=== PATIENT | female | born 2000 | race Caucasian/White ===

== ENCOUNTER → 2022-07-03 | Outpatient (CLI) | payer SELFPAY ==
[2022-07-06 21:07] LABS: Chlamydia By Nucleic Acid AMP Negative (Negative); Gonococcus By Nucleic Acid AMP Negative (Negative)
== END | disposition home or self-care (01) ==
LOC: LABSPEC 16:47
PROVIDERS: Referring Provider Obstetrics & Gynecology; Visit Provider Obstetrics & Gynecology
DX: Z20.2 Contact with and (suspected) exposure to infections with a predominantly sexual mode of transmission (principal)
CPT/HCPCS: 87491; 87591

== ENCOUNTER → 2022-12-29 | Outpatient (CLI) | payer SELFPAY | END | disposition home or self-care (01) | LOC: LABSPEC 11:40 | PROVIDERS: Referring Provider Nurse Practitioner Women's Health; Visit Provider Nurse Practitioner Women's Health | DX: N89.8 Other specified noninflammatory disorders of vagina (principal) | CPT/HCPCS: 87070; 87077; 87186; 87205 ==

== ENCOUNTER → 2023-07-06 | Outpatient (CLI) | payer OTHER, SELFPAY ==
[2023-07-12 16:06] LABS: HPV Reflexed? NOT INDICATED
== END | disposition home or self-care (01) ==
LOC: LABSPEC 12:28
PROVIDERS: Referring Provider Nurse Practitioner Women's Health; Visit Provider Nurse Practitioner Women's Health
DX: Z12.4 Encounter for screening for malignant neoplasm of cervix (principal)
CPT/HCPCS: 88175; G0145

== ENCOUNTER → 2024-11-06 | Outpatient (CLI) | payer OTHER, SELFPAY ==
--- OUTSIDE RECORDS SUMMARY | 2024-11-06 21:47 | XMS RPT_ITS | CCD ---
Author Organization [facility] Care Team Providers Care Truck Dispatcher Name Role Phone Dr. Sigrid Castillo Attending Provider [place] PROGRAM DIRECTOR/AIR PERSONALITY, PROGRAM DIRECTOR/AIR PERSONALITY-C Rhoda Attending Provider [place] PROGRAM DIRECTOR/AIR PERSONALITY, PROGRAM DIRECTOR/AIR PERSONALITY-C Rhoda Attending Provider [place] PROGRAM DIRECTOR/AIR PERSONALITY, Rhoda Attending Unavailable [place] PROGRAM DIRECTOR/AIR PERSONALITY, Rhoda Attending Unavailable [place] PROGRAM DIRECTOR/AIR PERSONALITY, Rhoda Referring Unavailable [place] PROGRAM DIRECTOR/AIR PERSONALITY, Rhoda Attending Unavailable [place] PROGRAM DIRECTOR/AIR PERSONALITY, Rhoda Referring Unavailable Sigrid Castillo Attending Unavailable [place] PROGRAM DIRECTOR/AIR PERSONALITY, Rhoda Attending Unavailable Unavailable Primary Care Provider Unavailnitin Rendon MD, [facility] Primary Care Provider CHRISTINA RENDON Attending Unavailable JUSTICE, CHRISTINA Primary Care Unavailable JUSTICE, CHRISTINA Attending Unavailable JUSTICE, BANNER Primary Care Unavailable LATOYA CACERES Attending Unavailable LATOYA CACERES Referring Unavailable JUSTICE, CHRISTINA Primary Care Unavailable [place] PROGRAM DIRECTOR/AIR PERSONALITY-C, Rhoda Attending Provider Medications Current Medications Medication Drug Class(es) Dates Sig (Normalized) Sig (Original) [id number] 200 actuat albuterol 0.09 mg/actuat metered dose inhaler (13 sources) beta2-Adrenergic Agonist Start: 08-04-2023 End: 08-04-2023 take 2 puff(s) by inhalation every four hours as needed for wheezing albuterol HFA (PROVENTIL HFA, VENTOLIN HFA) 90 mcg/actuation inhaler Indications: Exercise-induced asthma (HCC) Inhale 2 Puffs as instructed every 4 hours as needed for wheezing/shortnes s of breath. 6.7 g 2 08/04/2023 Active Start: 07-03-2022 take 0.63 mg by inha lation every six hours Albuterol Sulfate 0.63 mg/3 mL solution for nebulization Active 0.63 mg INHALATION EVERY 6 HOURS July 03, 2022 12:00am benoxinate hydrochloride 4 mg/ml / fluorescein sodium 3 mg/ml ophthalmic solution (2 sources) Diagnostic Dye Start: 10-17-2024 End: 10-18-2024 fluorescein-benoxinate 0.3-0.4 % 1 drop (FLURESS) Start: 08-18-2023 End: 08-19-2023 fluorescein-benoxinate 0.3-0 .4 % 1 Drop (FLURESS) escitalopram 20 mg oral tablet (20 sources) Serotonin Reuptake Inhibitor Start: 01-31-2024 End: 03-12-2024 escitalopram oxalate (LEXAPRO) 20 mg tablet Indications: Anxiety and depression Take 1/2 tablet of lexapro daily for 7 days and then increase to 1 full tablet daily 90 tablet 2 01/31/2024 03/12/2024 Discontinued Start: 08-04-2023 End: 01-31-2024 escitalopram oxalate (LEXAPR O) 5 mg tablet Indications: Anxiety and depression take 5 mg daily of lexapro for 14 days, then cut 5 mg tablets in half (2.5 mg) daily and take for 7 days then take the 2.5 mg tablets every other day for 7 days then stop 21 tablet 08/04/2023 01/31/2024 Discontinued Start: 07-03-2022 End: 04-17-2024 take 1 tablet by mouth once daily escitalopram oxalate (LEXAPRO) 20 mg tablet Indications: Anxiety and depression Take 1 tablet by mouth once daily. 90 tablet 1 04/18/2024 Active fluconazole 150 mg oral tablet (2 sources) Azole Antifungal Start: 01-04-2023 Fluconazole 1 50 mg tablet Active 150 mg PO .COMPLEX 2 0 January 04, 2023 1:00am 150 mg PO take one po now and repeat in 3 days hyoscyamine sulfate 0.125 mg/ml oral solution (5 sources) Start: 07-03-2022 take 1 mL by mouth before mealtime Hyoscyamine Sulfate 0.125 mg/mL drops Active 1 mL PO before meals July 03, 2022 12:00am Start: 07-03-2022 take 1 mL by mouth b efore mealtime Hyoscyamine Sulfate Active 1 ML PO before meals May 5th, 2023 12:00am End: 08-04-2023 hyoscyamine (LEVSIN) 0.125 m g tablet omeprazole 20 mg delayed release oral capsule (8 sources) Proton Pump Inhibitor Start: 04-03-2024 End: 04-26-2024 take 1 capsule by mouth once daily omeprazole (PRILOSEC) 20 mg capsule Indications: Gastroesophageal reflux disease, unspecified whether esophagitis present TAKE 1 CAPSULE BY MOUTH EVERY DAY 90 capsule 1 04/26/2024 Active Start: 08-04-2023 End: 01-31-2024 take 1 capsule by mouth once daily omeprazole (PRILOSEC) 20 mg capsule Indications: Gastroesophageal reflux disease, unspecified whether esophagitis present Take 1 capsule by mouth once daily. 30 capsule 3 08/04/2023 01/31/2024 Discontinued phenylephrine hydrochloride 25 mg/ml ophthalmic solution (2 sources) alpha-1 Adrenergic Agonist Start: 10-17-2024 End: 10-18-2024 PHENYLephrine 2.5 % 1 drop (AK-DILATE, CHARI-SYNEPHRINE) Start: 08-18-2023 End: 08-19-2023 PHENYLephrine 2.5 % 1 Drop ( AK-DILATE, CHARI-SYNEPHRINE) tropicamide 10 mg/ml ophthalmic solution (2 sources) Anticholinergic Start: 10-17-2024 End: 10-18-2024 tropicamide 1 % 1 drop (MYDRIACYL) Start: 08-18-2023 End: 08-19-2023 tropicamide 1 % 1 Drop (MYDR IACYL) Completed/Discontinued Medications Medication Drug Class(es) Dates Sig (Normalized) Sig (Original) famotidine 20 mg oral tablet (1 source) Histamine-2 Receptor Antagonist End: 08-04-2023 take 1 tablet by mouth twice daily famotidine (PEPCID) 20 mg tablet Take 20 mg by mouth two times a day. 0 08/04/2023 Discontinued sulfamethoxazole 800 mg / trimethoprim 160 mg oral tablet (2 sources) Dihydrofolate Reductase Inhibitor Antibacterial, Sulfonamide Antimicrobial Start: 01-03-2023 End: 01-08-2023 Sulfamethoxazole- Trimethoprim 800-160 mg tablet Discontinued 1 {tbl} PO TWICE A DAY 10 5 0 January 03, 2023 12:00am January 07, 2023 1:00am January 08, 2023 1:06am Start: 01-03-2023 End: 01-08-2023 take 1 tablet by mouth twice daily Sulfamethoxazole-Trimethoprim Discontinu ed 1 TABLET PO TWICE A DAY 10 January 03, 2023 12:00am January 08, 2023 1:06am Problems Active Problems Problem Classification Problem Date Documented Date Episodic/Chronic Anxiety disorders (5 sources) Mixed anxiety and depressive disorder; Translations: [Anxiety disorder, unspecified] Onset: 01-31-2024 08-04-2023 Chronic Asthma (2 sources) Exercise-induced asthma; Translations: [Exercise induced bronchospasm] Onset: 08-04-2023 08-04-2023 Chronic Blindness and vision defects (9 sources) Does use contact lenses; Translations: [Presence of spectacles and contact lenses] Onset: 10-17-2024 08-18-2023 Episodic Contraceptive and procreative management (6 sources) Contraception status; Translations: [Encounter for other general counseling and advice on contraception] Onset: 07-06-2023 07-03-2022 Episodic Esophageal disorders (4 sources) Gastroesophageal reflux disease; Translations: [Gastro-esophageal reflux disease without esophagitis] Onset: 08-04-2023 08-04-2023 Chronic Menstrual disorders (2 sources) Dysmenorrhea, unspecified; Translations: [Dysmenorrhea] Onset: 12-29-2022 12-29-2022 Chronic Mood disorders (1 source) Mood disorders; Translations: [Anxiety and depression] Onset: 01-31-2024 Nutritional deficiencies (2 sources) Vitamin D deficiency; Translations: [Vitamin D deficiency, unspecified] Onset: 08-04-2023 08-04-2023 Chronic Past or Other Problems Problem Classification Problem Date Documented Date Episodic/Chronic Other female genital disorders (2 sources) Other specified noninflammatory disorders of vagina; Translations: [Leukorrhea, not specified as infective] Onset: 12-31-2022 12-29-2022 Episodic Other screening for suspected conditions (not mental disorders or infectious disease) (4 sources) Encounter for screening for malignant neoplasm of cervix; Translations: [Screening for malignant neoplasms of cervix] Onset: 07-12-2023 07-06-2023 Episodic Results Test Name Value Interpretation Reference Range Facility OV 08-04-2023 CNOV Office Visit (AGSAM) JOCY DENNIS ([id number]) 00 F [facility] Date Time Provider Department 08/04/23 2:40 PM CHRISTINA RENDON During your visit today, we recorded the following information about you: Pulse Respiration Blood pressure Weight 63/minute 16/minute 114/73 85.7 kg Height Last Period 1.651 m 07/26/23 Christina Rendon MD 08/04/2023 3:29 PM Signed [facility] [address] [place] [address] Date of Evaluation: 08/04/2023 Patient Name: Jocy Dennis : 2000 Chief Complaint: Patient presents with: New Patient Nursing Intake: There are no exam notes on file for this visit. Subjective HPI Ms. Dennis is a 23 year old female with PMH significant for exercise- induced asthma, depression and anxiety, GERD who presents for establishing care with me. She recently moved to [place] from [place] after getting in January of 2023. She notes that this past 4 months, she would have bad acid reflux, especially with wine, alcohol, greasy foods and acidic foods. She has been taking pepcid 20 mg BID on a regular basis. She started lexapro in 2019 for depression and anxiety due to school. She notes that she started trying to wean off her lexapro but ended up getting brain zaps. She notes that she started taking the 20 mg of lexapro every other day and then spacing it out more. The brain zaps came when spacing out the medication even more than just every other day. She denies prior history of hospitalizations or SI/HI/AVH related to anxiety and depression. She recently got her pap smear done about [address] Edgar Bailey in [facility]. She had gotten her copper IUD removed that day. She notes that pap smear was negative. 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 She started her job at [employer] in March and likes her job a lot. She works nights currently. She is currently using condoms for control. She notes that she has regular periods and about 6-7 days and light to medium. Review of Systems Constitutional: Negative for appetite change and unexpected weight change. Eyes: Negative for visual disturbance. Respiratory: Negative for shortness of breath. Cardiovascular: Negative for chest pain and leg swelling. Gastrointestinal: Negative for abdominal pain, constipation and diarrhea. Genitourinary: Negative for difficulty urinating and menstrual problem. Musculoskeletal: Negative for gait problem and joint swelling. Skin: Negative for rash. Neurological: Negative for weakness. Hematological: Does not bruise/bleed easily. Psychiatric/Behavior al: Negative for dysphoric mood, sleep disturbance and suicidal ideas. The patient is not nervous/anxious and is not hyperactive. PAST MEDICAL HISTORY Diagnosis Date Anxiety and depression Exercise-induced asthma GERD (gastroesophageal reflux disease) PAST SURGICAL HISTORY Procedure Laterality Date COLONOSCOPY SCREENING age 5 for diarrhea, normal findings EXTRACTION ERUPTED TOOTH/EXR History reviewed. No pertinent family history. Social History Tobacco Use Smoking status: Never Smokeless tobacco: Never Substance Use Topics Alcohol use: Yes Comment: occassional Drug use: Never Current Outpatient Medications Medication Sig escitalopram oxalate (LEXAPRO) 20 mg tablet escitalopram oxalate (LEXAPRO) 5 mg tablet take 5 mg daily of lexapro for 14 days, then cut 5 mg tablets in half (2.5 mg) daily and take for 7 days then take the 2.5 mg tablets every other day for 7 days then stop omeprazole (PRILOSEC) 20 mg capsule Take 1 capsule by mouth once daily. albuterol HFA (PROVENTIL HFA, VENTOLIN HFA) 90 mcg/actuation inhaler Inhale 2 Puffs as instructed every 4 hours as needed for wheezing/shortness of breath. No current facility-administere d medications for this visit. I have confirmed and edited as necessary the chief complaint, medications, past medical, family and social histories obtained by others. Objective BP 114/73 Pulse 63 Resp 16 Ht 5' 5 (1.65m) Wt 189 lb (85.7kg) SpO2 97% LMP 07/26/2023 BMI 31.45 kg/(m2). Physical Exam Vitals reviewed. Constitutional: General: She is not in acute distress. Appearance: Normal appearance. She is not ill-appearing, toxic-appearing or diaphoretic. HENT: Head: Normocephalic and atraumatic. Right Ear: Tympanic membrane, ear canal and external ear normal. Left Ear: Tympanic membrane, ear canal and external ear normal. Nose: Nose normal. Mouth/Throat: Mouth: Mucous membranes are moist. Pharynx: Oropharynx is clear. No oropharyngeal exudate or posterior oropharyngeal erythema. Eyes: General: No scleral icterus. Extraocular Movements: Extraocular movements intact. Conjunctiva/sclera: Conjunctivae normal. Pupils: Pupils are (more content not included)... Normal [facility] PAP I-G w/rfx hrHPV-Aptimaon 07-12-2023 ADEQ Comment Normal . [facility] Comment on above: Order Comment: Speci men Comment: [id number] Specimen Comment: Source.............Cervix Specimen Comment: LMP / Prev Treat...[id number] Specimen Comment: No. of containers..01 ThinPrep Vial Result Comment: Sati sfactory for evaluation. Endocervical and/or squamous metaplastic cells (endocervical component) are present. Performed By: #### L 7400.0353 #### [facility] [address] [place], [address] COMM . Normal . [facility] Comment on above: Order Comment: Speci men Comment: [id number] Specimen Comment: Source.............Cervix Specimen Comment: LMP / Prev Treat...[id number] Specimen Comment: No. of containers..01 ThinPrep Vial Performed By: #### L 7400.0353 #### [facility] [address] [place], [place], [id number] COMMENT Comment Normal . [facility] Comment on above: Order Comment: Speci men Comment: [id number] Specimen Comment: Source.............Cervix Specimen Comment: LMP / Prev Treat...[id number] Specimen Comment: No. of containers..01 ThinPrep Vial Result Comment: This liquid based ThinPrep(R) pap test was screened with the use of an image guided system. Performed By: #### L 7400.0353 #### [facility] [address] [place], [place], [id number] DIAG Comment Normal . [facility] Comment on above: Order Comment: Speci men Comment: [id number] Specimen Comment: Source.............Cervix Specimen Comment: LMP / Prev Treat...[id number] Specimen Comment: No. of containers..01 ThinPrep Vial Result Comment: NEGA TIVE FOR INTRAEPITHELIAL LESION OR MALIGNANCY. CELLULAR CHANGES ASSOCIATED WITH INFLAMMATION ARE PRESENT. Performed By: #### L 7400.0353 #### [facility] [address] [place], [address] HPV RFLX Comment Normal . [facility] Comment on above: Order Comment: Speci men Comment: [id number] Specimen Comment: Source.............Cervix Specimen Comment: LMP / Prev Treat...[id number] Specimen Comment: No. of containers..01 ThinPrep Vial Result Comment: The HPV DNA reflex criteria were not met with this specimen result therefore, no HPV testing was performed. Performed at: [address] [id number] Circuit Clerk: Love Douglass MD, Phone: [phone] Performed By: #### L 7400.0353 #### [facility] [address] [place], [address] PAPSMR Comment Normal . [facility] Comment on above: Order Comment: Speci men Comment: [id number] Specimen Comment: Source.............Cervix Specimen Comment: LMP / Prev Treat...[id number] Specimen Comment: No. of containers..01 ThinPrep Vial Result Comment: The Pap smear is a screening test designed to aid in the detection of premalignant and malignant conditions of the uterine cervix. It is not a diagnostic procedure and should not be used as the sole means of detecting cervical cancer. Both false-positive and false-negative reports do occur. Performed By: #### L 7400.0353 #### [facility] [address] [place], [address] PERFORM Comment Normal . [facility] Comment on above: Order Comment: Speci men Comment: [id number] Specimen Comment: Source.............Cervix Specimen Comment: LMP / Prev Treat...[id number] Specimen Comment: No. of containers..01 ThinPrep Vial Result Comment: Bekah Feliciano, Repairer Art [employer] Performed By: #### L 7400.0353 #### [facility] [address] [place], [address] Social Sciences Professor Office Visit Reporton 07-06-2023 Social Sciences Professor Office Visit Report [facility] [address] [place] [address] OFFICE VISIT Date of Service: 07/06/23 MR#: [id number] Acct: [id number] Name: JOCY DENNIS Rep #: [id number] : 2000 Provider: FRANCOIS maldonado Age/Sex: 23/F Location: [facility] Status: Signed Intake Vital Signs 12/29/22 09:28 07/06/23 11:05 07/06/23 11:11 Height 5 ft 5 in 5 ft 5 in 5 ft 5 in Weight: 191 lb 4 oz BMI 31.8 BP 120/82 H Intake Visit Reasons: IUD REMOVAL (PARAGUARD) Chief Complaint: IUD Removal Knitting Machine Operator Automatic Required: No Is patient in pain?: No Allergies No Known Allergies Allergy (Unverified 07/06/23 11:05) Medications albuterol sulfate 0.63 mg/3 mL solution for nebulization 0.63 mg inhalation Q6H 07/03/22 [History Confirmed 07/06/23] hyoscyamine sulfate 0.125 mg/mL oral drops 1 ml PO QAC 07/03/22 [History Confirmed 07/06/23] escitalopram oxalate 20 mg tablet (Lexapro) 20 mg PO DAILY #30 tabs 12/24/22 [Rx Confirmed 07/06/23] fluconazole 150 mg tablet 150 mg PO .COMPLEX #2 tabs 01/04/23 [Rx Confirmed 07/06/23] Is last menstrual period known: Yes Last Menstrual Period: 06/16/23 Post menopausal: No Patient : No : No PFSH Surgical History H/O wisdom tooth extraction History of bunionectomy of both great toes Hx of bladder endoscopy Social History adopted: No household members: family 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 She is and denies STD concerns. They plan to use condoms until ready to attempt . She is due for pap. Female Reproductive History Last Menstrual Period: 06/16/23 ROS Const Constitutional: Reports system reviewed and no additional complaints, except as documented Eyes Eyes: Reports system reviewed and no additional complaints, except as documented GI GI: Denies abdominal pain or change in bowel habits : Reports as per HPI Exam Const General: cooperative and no acute distress Nutritional Appearance: well nourished Orientation: oriented x3 General: bladder normal to palpation External Female Exam: normal external appearance and normal appearance of the urethra Urethra: normal appearance of the urethra Speculum Exam - Vagina: normal appearance of the vagina, normal vaginal discharge, no lesions and nontender Speculum Exam - Cervix: normal appearance of the cervix and other (smooth, nonfriable) Bimanual Exam- Vagina Uterus: normal bimanual exam, uterine size normal, bladder normal to palpation, uterine shape normal, uterine mobility normal and non-tender Bimanual Exam- Adnexa, other: normal adnexae, no masses and non-tender Office Procedures IUD Removal IUD Removal Details: Sign out documentation: Completed Procedure: Speculum placed in vagina, IUD string visualized and grasped with ring forceps. IUD easily removed in its entirety and patient tolerated well. Coding Level of Care Code Attention Areli Diagnoses Encounter for IUD removal Z30.432 Pap smear for cervical cancer screening Z12.4 Assessment and Plan Assessment and Plan (1) Encounter for IUD removal: (2) Pap smear for cervical cancer screening: Orders: Orders PAP I-G w/rfx hrHPV-Aptima Today Z12.4 - Encounter for screening for malignant neoplasm of cervix IUD Removal Today Z30.432 - Encounter for removal of intrauterine contraceptive device Plan IUD easily removed. Use condoms, start vitamins thin prep pap with reflex HPV collected RTO prn, 1 year for annual 07/06/23 1120 Date Rhoda Nunn NP, NP-C Cosigner Signature: Date (if applicable) CC: Normal [facility] Genital Culture Comprehensiv bertram 01-01-2023 VAC Reason for Exam: vaginal discharge vaginal discharge No yeast, Gardnerella, or Neisseria isolated. Streptococcus agalactiae (B) Amount Growth 3+ Escherichia coli Amount Growth 2+ Streptococcus agalactiae (B): REACTION Ampicillin Islt ANGELA <=0.25 S Penicillin G Islt ANGELA <=0.06 S cefTRIAXone Islt ANGELA <=0.12 S Clindamycin Islt ANGELA >=1 R Clindamycin.induced Susc Islt NEG Linezolid Islt ANGELA <=2 S Vancomycin Islt ANGELA 0.5 S Escherichia coli: REACTION Ampicillin Islt ANGELA >=32 R Ampicillin+Sulbac Islt ANGELA 16 I ceFAZolin Islt ANGELA <=4 S Cefepime Islt ANGELA <=0.12 S cefTRIAXone Islt ANGELA <=0.25 S Ciprofloxacin Islt ANGELA <=0.25 S Ertapenem Islt ANGELA <=0.12 S B-Lactamase Extended Susc Islt NEG Gentamicin Islt ANGELA <=1 S Imipenem Islt ANGELA <=0.25 S levoFLOXacin Islt ANGELA <=0.12 S Pip+Tazo Islt ANGELA <=4 S Tobramycin Islt ANGELA <=1 S TMP SMX Islt ANGELA <=20 S Normal [facility] Comment on above: Performed By: #### M 100.1999, M100.3200 #### [facility] [address] [facility] [place], [place], [address] Gram Stainon 12-29-2022 GS Reason for Exam: vaginal discharge vaginal discharge Gram Stain Rare Epithelial cells 2+ Gram negative rods 1+ Gram positive cocci No Gram negative diplococci Score = 4 Interpretation: 0-3 Normal, 4-6 Intermediate, 7-10 Positive BV Normal [facility] Comment on above: Performed By: #### M 100.1999, M100.3200 #### [facility] [address] [facility] [place], [place], [address] Gram stain for investigation of transfusion reactionOrdered By: Rhoda Nunn on 12-29-2022 Microscopic observation Gram stain Nom (Unsp spec) [facility] Social Sciences Professor Office Visit Reporton 12-29-2022 Social Sciences Professor Office Visit Report [facility] [address] [place] [address] OFFICE VISIT Date of Service: 12/29/22 MR#: [id number] Acct: [id number] Name: JOCY DENNIS Rep #: [id number] : 2000 Provider: FRANCOIS maldonado Age/Sex: 22/F Location: [facility] Status: Signed Intake Vital Signs 08/24/22 12:01 12/29/22 09:28 12/29/22 09:28 Height 5 ft 5 in 5 ft 5 in 5 ft 5 in Weight: 174 lb 2 oz BMI 29.0 BP 118/80 Intake Visit Reasons: BV? 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 Operator Automatic Required: No Is patient in pain?: No Allergies No Known Allergies Allergy (Unverified 12/29/22 09:20) Medications albuterol sulfate 0.63 mg/3 mL solution for nebulization 0.63 mg inhalation Q6H 07/03/22 [History Confirmed 12/29/22] hyoscyamine sulfate 0.125 mg/mL oral drops 1 ml PO QAC 07/03/22 [History Confirmed 12/29/22] escitalopram oxalate 20 mg tablet (Lexapro) 20 mg PO DAILY #30 tabs 12/24/22 [Rx Confirmed 12/29/22] Is last menstrual period known: Yes Post menopausal: No Patient : No : No PFSH Surgical History H/O wisdom tooth extraction History of bunionectomy of both great toes Hx of bladder endoscopy Social History adopted: No household members: family 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 Details: JOCY DENNIS is a 22 year old who presents for vaginal discharge and odor. Has paragard IUD and cramping with menses more intense. Was last month. Declines need for STD evaluation ROS Const Constitutional: Reports system reviewed and no additional complaints, except as documented Eyes Eyes: Reports system reviewed and no additional complaints, except as documented GI GI: Denies abdominal pain or change in bowel habits : Reports as per HPI Exam Const General: cooperative and no acute distress Nutritional Appearance: well nourished Orientation: oriented x3 General: bladder normal to palpation External Female Exam: normal external appearance and normal appearance of the urethra Urethra: normal appearance of the urethra Speculum Exam - Vagina: normal appearance of the vagina, normal vaginal discharge (end of menses/brown), no lesions and nontender Speculum Exam - Cervix: normal appearance of the cervix (IUD strings at os) Bimanual Exam- Vagina Uterus: normal bimanual exam, uterine size normal, bladder normal to palpation, uterine shape normal, uterine mobility normal and non-tender Bimanual Exam- Adnexa, other: normal adnexae, no masses and non-tender Coding Level of Care Code Off vis,est,level 3 Diagnoses Vaginal discharge N89.8 Dysmenorrhea N94.6 Assessment and Plan Assessment and Plan (1) Vaginal discharge: (2) Dysmenorrhea: Orders: Orders POC BV Blue Test Today N89.8 - Other specified noninflammatory disorders of vagina Culture, Genital Comprehensive Today N89.8 - Other specified noninflammatory disorders of vagina Plan CARLINE BV and comp vaginal culture, call positive Increased cramping with copper IUD is common. Reviewed use of OTC Aleve RTO prn, annual 12/29/22 0939 Date Rhoda [place] PROGRAM DIRECTOR/AIR PERSONALITY PROGRAM DIRECTOR/AIR PERSONALITY-C Cosigner Signature: Date (if applicable) CC: Normal [facility] Social Sciences Professor Office Visit Reporton 08-24-2022 Social Sciences Professor Office Visit Report [facility] [address] [place] [address]. [address] [place] [address] OFFICE VISIT Date of Service: 08/24/22 MR#: [id number] Acct: [id number] Name: JOCY DENNIS Rep #: [id number] : 2000 Provider: Dr. 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 Required: No Is patient in pain?: No Allergies No Known Allergies Allergy (Unverified 08/24/22 12:01) Is last menstrual period known: No Post menopausal: No Patient : No : No PFSH Surgical History (Updated 07/03/22 @ 12:00 by Agustina Guzmán) H/O wisdom tooth extraction History of bunionectomy of both great toes Hx of bladder endoscopy Social History (Updated 07/03/22 @ 12:04 by Agustina Guzmán) adopted: No household members: family current occupational status: 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 current occupational exposures/hazards: No sexually active: Yes Smoking Status: Never smoker alcohol intake: current substance use type: does not use caffeine: Yes seatbelt use: always do you feel safe at home: Yes additional social history: Fianc???, Jonh (works for [employer] business) HPI IUD CHECK, pt leaving this date back to [place] Details: JOCY DENNIS is a 22 year old who presents for IUD follow up she is doing well no complaints ROS Const Constitutional: Reports system reviewed and no additional complaints, except as documented : Reports system reviewed and no additional complaints, except as documented and as per HPI Exam Const General: cooperative, healthy appearing, comfortable and no acute distress External Female Exam: normal external appearance and normal appearance of the urethra Urethra: normal appearance of the urethra Speculum Exam - Vagina: normal appearance of the vagina and normal vaginal discharge Speculum Exam - Cervix: normal appearance of the cervix (strings seen 3-4 cm in length) Bimanual Exam- Vagina Uterus: normal bimanual exam Bimanual Exam- Adnexa, other: normal adnexae, adnexae mobile and no masses Coding Level of Care Code Off vis,est,level 2 Diagnoses Counseling for control regarding intrauterine device (IUD) Z30.09 Assessment and Plan Assessment and Plan (1) Counseling for control regarding intrauterine device (IUD): Status: Acute Plan fu annually or PRN 08/24/22 1259 Date Sigrid Castillo MD Cosigner Signature: Date (if applicable) CC: Normal [facility] Chlamydia trachomatis rRNA d etection by probe and target amplification methodOrdered By: Dr. Castillo on 07-03-2022 C. trachomatis rRNA DANICA+probe Ql (Unsp spec) Negative Negative [facility] Laboratory - Chemistry and C hemistry - challengeon 07-03-2022 HCG ( test) Ql (U) Negative [facility] - Microbiology an d Antimicrobial susceptibilityOrdered By: Dr. Castillo on 07-03-2022 N. gonorrhoeae DNA DANICA+probe Ql (Unsp spec) Negative Negative [facility] Comment on above: Performed at: =[address] [id number] Director: Love Douglass MD, Phone: [phone] Vital Signs Date Time Vital Sign Value Performing Clinician Faci [facility] 11-06-2024 14:05-0400 Body height 165.1 cm Rhoda Greggs PROGRAM DIRECTOR/AIR PERSONALITY-C Work Phone: [facility] 11-06-2024 14:00-0400 Body mass index (BMI) [Ratio] 31.5 kg/m2 Rhoda [place] PROGRAM DIRECTOR/AIR PERSONALITY-C Work Phone: [facility] 11-06-2024 14:00-0400 Body weight 85.87 kg Rhoda [place] PROGRAM DIRECTOR/AIR PERSONALITY-C Work Phone: [facility] 11-06-2024 14:00-0400 Diastolic blood pressure 78 mm[Hg] Rhoda [place] PROGRAM DIRECTOR/AIR PERSONALITY-C Work Phone: [facility] 11-06-2024 14:00-0400 Systolic blood pressure 116 mm[Hg] Rhoda [place] PROGRAM DIRECTOR/AIR PERSONALITY-C Work Phone: [facility] 08-04-2023 14:35-0400 Body height 165.1 cm Christina Rendon MD Work Phone: [facility] 08-04-2023 14:35-0400 Body mass index (BMI) [Ratio] 31.45 kg/m2 Christina Rendon MD Work Phone: [facility] 08-04-2023 14:35-0400 Body weight 85.73 kg Christina Rendon MD Work Phone: [facility] 08-04-2023 14:35-0400 Diastolic blood pressure 73 mm[Hg] Christina Rendon MD Work Phone: [facility] 08-04-2023 14:35-0400 Heart rate 63 /min Christina Rendon MD Work Phone: [facility] 08-04-2023 14:35-0400 Respiratory rate 16 /min Christina Rendon MD Work Phone: [facility] 08-04-2023 14:35-0400 SaO2% (BldA) [Mass fraction] 97 % Christina Rendon MD Work Phone: [facility] 08-04-2023 14:35-0400 Systolic blood pressure 114 mm[Hg] Christina Rendon MD Work Phone: [facility] 07-06-2023 11:11-0400 Body height 165.1 cm PROGRAM DIRECTOR/AIR PERSONALITY-C Rhoda [place] PROGRAM DIRECTOR/AIR PERSONALITY Work Phone: [facility] 07-06-2023 11:05-0400 Body mass index (BMI) [Ratio] 31.8 kg/m2 PROGRAM DIRECTOR/AIR PERSONALITY-C Rhoda Edouard PROGRAM DIRECTOR/AIR PERSONALITY Work Phone: [facility] 07-06-2023 11:05-0400 Body weight 86.74 kg PROGRAM DIRECTOR/AIR PERSONALITY-C Rhoda Edouard PROGRAM DIRECTOR/AIR PERSONALITY Work Phone: [facility] 07-06-2023 11:05-0400 Diastolic blood pressure 82 mm[Hg] PROGRAM DIRECTOR/AIR PERSONALITY-C Rhoda Edouard PROGRAM DIRECTOR/AIR PERSONALITY Work Phone: [facility] 07-06-2023 11:05-0400 Systolic blood pressure 120 mm[Hg] PROGRAM DIRECTOR/AIR PERSONALITY-C Rhoda Edouard PROGRAM DIRECTOR/AIR PERSONALITY Work Phone: [facility] 12-29-2022 09:28-0400 Body height 165.1 cm PROGRAM DIRECTOR/AIR PERSONALITY-C Rhoda Deouard PROGRAM DIRECTOR/AIR PERSONALITY Work Phone: [facility] 12-29-2022 09:28-0400 Body mass index (BMI) [Ratio] 29 kg/m2 PROGRAM DIRECTOR/AIR PERSONALITY-C Rhoda Edouard PROGRAM DIRECTOR/AIR PERSONALITY Work Phone: [facility] 12-29-2022 09:28-0400 Body weight 78.98 kg PROGRAM DIRECTOR/AIR PERSONALITY-C Rhoda [place] PROGRAM DIRECTOR/AIR PERSONALITY Work Phone: [facility] 12-29-2022 09:28-0400 Diastolic blood pressure 80 mm[Hg] PROGRAM DIRECTOR/AIR PERSONALITY-C Rhoda Edouard PROGRAM DIRECTOR/AIR PERSONALITY Work Phone: [facility] 12-29-2022 09:28-0400 Systolic blood pressure 118 mm[Hg] PROGRAM DIRECTOR/AIR PERSONALITY-C Rhoda Edouard PROGRAM DIRECTOR/AIR PERSONALITY Work Phone: [facility] 07-03-2022 12:07-0400 Body height 165.[address] Sigrid Castillo Work Phone: [facility] 07-03-2022 12:07-0400 Body mass index (BMI) [Ratio] 26.6 kg/m2 Dr. Sigrid Castillo Work Phone: [facility] 07-03-2022 12:07-0400 Body weight 72.[address] Sigrid Castillo Work Phone: [facility] 07-03-2022 12:07-0400 Diastolic blood pressure 70 mm[Hg] Dr. Sigrid Castillo Work Phone: [facility] 07-03-2022 12:07-0400 Systolic blood pressure 109 mm[Hg] Dr. Sigrid Castillo Work Phone: [facility] Encounters Encounter Date Encounter Type Care Provider Facility Start: 11-06-2024 End: 11-06-2024 ambulatory Rhoda Edouard PROGRAM DIRECTOR/AIR PERSONALITY-C Work Phone: [facility] Start: 11-06-2024 End: 11-06-2024 Patient encounter procedure Rhoda Ronquillotings PROGRAM DIRECTOR/AIR PERSONALITY-C -[facility] Work Phone: Start: 10-17-2024 End: 10-17-2024 Patient encounter procedure Latoya Caceres OD Work Phone: Ophthalmology Comment on above: Wears contact lenses (Primary Dx); Myopia of both eyes; Regular astigmatism of left eye Start: 10-17-2024 End: 10-17-2024 ambulatory LATOYA CACERES Facility:[facility] Start: 08-21-2024 End: 08-21-2024 ambulatory CHRISTINA RENDON Facility:[facility] Start: 04-26-2024 End: 04-26-2024 Refill Christina Rendon MD Work Phone: [facility] Comment on above: Med Change Request Start: 04-17-2024 End: 04-18-2024 Refill Christina Rendon MD Work Phone: [facility] Comment on above: Refill Request Start: 04-01-2024 End: 04-03-2024 ambulatory Christina Rendon MD Work Phone: [facility] Comment on above: Restarting Omeprazol e Start: 03-12-2024 End: 03-13-2024 Refill Christina Rendon MD Work Phone: [facility] Comment on above: Refill Request Start: 01-31-2024 End: 01-31-2024 Telemedicine consultation with patient Christina Rendon MD Work Phone: [facility] Start: 01-31-2024 End: 01-31-2024 ambulatory Christina Rendon MD Work Phone: [facility] Comment on above: Anxiety and depressi on (Primary Dx) Start: 08-18-2023 End: 08-18-2023 Patient encounter procedure Latoya Johnsonkenyon OD Work Phone: [facility] Comment on above: Wears contact lenses (Primary Dx); Myopia of both eyes; Regular astigmatism of left eye Start: 08-04-2023 End: 08-04-2023 Patient encounter procedure Christina Rendon MD Work Phone: [facility] Comment on above: Encounter for medica l examination to establish care (Primary Dx); Anxiety and depression; Gastroesophageal reflux disease, unspecified whether esophagitis present; Screening, lipid; Vitamin D deficiency; Exercise-induced asthma; Routine eye exam Start: 08-04-2023 End: 08-04-2023 Patient encounter status Christina Rendon MD Work Phone: [facility] Work Phone: Start: 08-04-2023 End: 08-04-2023 ambulatory CHRISTINA RENDON Facility:[facility] Start: 08-04-2023 Encounter for genera l adult medical examination without abnormal findings CHRISTINA RENDON [facility] Start: 08-04-2023 End: 08-04-2023 Ophthalmic examination and evaluation Christina Rendon MD Work Phone: [facility] Start: 07-06-2023 End: 07-06-2023 ambulatory Rhoda Nunn PROGRAM DIRECTOR/AIR PERSONALITY [facility] Work Phone: Start: 07-06-2023 End: 07-06-2023 Patient encounter procedure PROGRAM DIRECTOR/AIR PERSONALITY-Geovanny Nunn PROGRAM DIRECTOR/AIR PERSONALITY Work Phone: [facility] Specimen Work Phone: Start: 07-06-2023 End: 07-06-2023 Patient encounter procedure PROGRAM DIRECTOR/AIR PERSONALITY-Geovanny Nunn PROGRAM DIRECTOR/AIR PERSONALITY Work Phone: [facility] Work Phone: Start: 12-29-2022 End: 12-29-2022 Patient encounter procedure PROGRAM DIRECTOR/AIR PERSONALITYJennifer Nunn PROGRAM DIRECTOR/AIR PERSONALITY Work Phone: [facility] Work Phone: Start: 12-29-2022 End: 12-29-2022 ambulatory Rhoda Nunn PROGRAM DIRECTOR/AIR PERSONALITY [facility] Work Phone: Start: 12-29-2022 End: 12-29-2022 Patient encounter procedure PROGRAM DIRECTOR/AIR PERSONALITY-Goevanny Nunn PROGRAM DIRECTOR/AIR PERSONALITY Work Phone: [facility] Work Phone: Start: 08-24-2022 End: 08-24-2022 ambulatory Sigrid Castillo Facility:[facility] Start: 07-03-2022 End: 07-03-[address] Sigrid Castillo Work Phone: [facility] Work Phone: Start: 07-03-2022 End: 07-03-[address] Sigrid Castillo Work Phone: [facility] Start: 07-03-2022 End: 07-03-[address] Sigrid Castillo Work Phone: [facility] Procedures Date Procedure Procedure Detail Performing Clinician Start: 01-31-2024 Adult depression screening assessment Christina Rendon MD Work Phone: Start: 08-04-2023 Adult depression screening assessment Christina Rendon MD Work Phone: Start: 12-29-2022 Investigation of transfusion reaction PROGRAM DIRECTOR/AIR PERSONALITY-Geovanny Nunn PROGRAM DIRECTOR/AIR PERSONALITY Work Phone: H/O: surgery Hx of bladder endoscopy Dr. Sigrid Castillo Work Phone: Plan of Treatment Date Care Activity Detail Author Start: 07-05-2026 Screening for malignant neoplasm of cervix [facility] Start: 01-30-2025 Anxiety Screening Anxiety Screening [facility] Start: 01-30-2025 Depression Screening Depression Screening [facility] Start: 10-30-2024 Influenza vaccination Influenza Vaccine (#1) Peng Romulo Start: 08-21-2024 End: 08-21-2024 Patient encounter procedure Mike Arevalo Comment on above: Return in about 1 year (around 08/17/2024 ) for comprehensive eye exam + refr + contact lens fitting Start: 08-03-2024 Anxiety Screening Anxiety Screening [facility] Start: 08-03-2024 Depression Screening Depression Screening [facility] Start: 10-31-2023 Covid-19 Vaccine ( season) Covid-19 Vaccine () [facility] Start: 10-31-2023 Influenza vaccination [facility] Start: 08-04-2023 End: 11-03-2023 25-hydroxyvitamin D3 [Mass/volume] in Serum or Plasma VITAMIN D 25 HYDROXY Lab Routine Vitamin D deficiency Expected: 08/04/2023, Expires: 11/03/2023 [facility] Comment on above: Expected: 08/04/2023, Expires: Start: 08-04-2023 End: 11-03-2023 CBC W Auto Differential panel - Blood COMPLETE BLOOD COUNT AND DIFFERENTIAL Lab Routine Gastroesophageal reflux disease, unspecified whether esophagitis present Encounter for medical examination to establish care Expected: 08/04/2023, Expires: 11/03/2023 [facility] Work Phone: Comment on above: Expected: 08/04/2023, Expires: Start: 08-04-2023 End: 11-03-2023 Comprehensive metabolic 2000 panel - Serum or Plasma COMPREHENSIVE METABOLIC PANEL Lab Routine Encounter for medical examination to establish care Expected: 08/04/2023, Expires: 11/03/2023 [facility] Comment on above: Expected: 08/04/2023, Expires: Start: 08-04-2023 End: 11-03-2023 Lipid 1996 panel - Serum or Plasma LIPID PANEL BASIC Lab Routine Screening, lipid Expected: 08/04/2023, Expires: 11/03/2023 [facility] Comment on above: Expected: 08/04/2023, Expires: Start: 07-06-2023 Liquid based cervical cytology screening [facility] Start: 12-29-2022 Cytopathology procedure, preparation of smear, genital source Genital Culture [facility] Start: 12-29-2022 Source specific culture [facility] Start: 10-30-2022 Covid-19 Vaccine ( season) Covid-19 Vaccine () [facility] Start: 07-03-2019 Hepatitis B Vaccine (1 of 3 - 19+ 3-dose series) Hepatitis B Vaccine (1 of 3 - 19+ 3-dose series) [facility] Start: 07-03-2019 Urine microalbumin profile DTaP,Tdap,Td Vaccine (1 - Tdap) [facility] Start: 2018 GC (Gonorrhea) Screening (18-24) GC (Gonorrhea) Screening (18-24) [facility] Start: 2018 Hepatitis C screening Hepatitis C Screening [facility] Start: 2018 HIV screening HIV Screening [facility] Start: 2018 Screening for Chlamydia trachomatis Chlamydia Screening (18-24) [facility] Start: 2016 Meningococcal B Vaccine (1 of 2 - Standard) Meningococcal B Vaccine (1 of 2 - Standard) [facility] Start: 2016 Meningococcal B Vaccine: Consider Based On Risk (1 of 2 - Patient Seeks Protection) Meningococcal B Vaccine: Consider Based On Risk (1 of 2 - Patient Seeks Protection) [facility] Start: 07-03-2015 HPV Vaccine (1 - 3-dose series) HPV Vaccine (1 - 3-dose series) [facility] Start: 2014 Peds To Adult Transition Annual Assessment Peds To Adult Transition Annual Assessment [facility] Start: 2012 Peds To Adult Transition Initial Discussion Peds To Adult Transition Initial Discussion [facility] Chlamydia deoxyribonucleic acid detection [facility] Path report.final Dx Spec [facility] Payers Date Payer Category Payer Unknown [id number] 2023 Private Health Insurance [id number] 2023 Private Health Insurance EHP AET NA EHP [place] ABELARDO / EHP Ebro ABELARDO [id number] 2023-Present [phone] [address] [place] [address] EPO [id number] 2023 Private Health Insurance [id number] 2022 Self-pay Unknown [id number] 62 Unknown [id number] 62 Unknown [id number] 62 Unknown [id number] 62 Unknown [id number] Social History Date Type Detail Facility Start: 07-03-2022 End: 12-29-2022 Tobacco smoking status PRIS Unknown if ever smoked [facility] Start: 2000 Sex Assigned At Female W [facility] Start: 12-29-2022 End: 08-04-2023 Tobacco smoking status PRIS Never smoked tobacco [facility] Start: 08-04-2023 Tobacco use and exposure Smokeless tobacco non-user [facility] Start: 08-04-2023 End: 10-17-2024 Alcohol intake Current drinker of alcohol (finding) [facility] Start: 08-04-2023 End: 01-31-2024 History of Social function [facility] Start: 08-04-2023 End: 01-31-2024 Tobacco use panel [facility] Start: 03-17-2023 Adult Depression Screening Assessment 0 [facility] Start: 08-04-2023 Alcohol Comment occassional [facility] Start: 07-06-2023 Gender identity Identifies as female gender (finding) [facility] Clinical Notes 08-04-2023 to 10-17-2024 Latoya Caceres OD - 10/17/2024 3:32 PM EDTTelephone Encounter - Rosmery Gamble MA - 04/26/2024 2:46 PM ESTTelephone Encounter - Rosmery Gamble MA - 04/26/2024 2:46 PM ESTPatient Instructions Note Date & Type Note Facility 10-17-2024 Note HNO ID: [id number] Author: LATOYA CACERES OD Service: ? Author Type: Top And Seat Cover Fitter Type: Progress Notes Filed: 10/17/2024 15:44 Note Text: 1. Wears contact lenses (Primary) 2. Myopia of both eyes 3. Regular astigmatism of left eye -ocular health unremarkable, no retinal breaks OU -released new CL prescription #1: updated spherical air optix #2: ultra with toric OS #3: air optix with toric OS -released new spec Rx -RTC one year for comprehensive exam + contact lens fitting Latoya Caceres, RUIZ [facility] 10-17-2024 History of Presen t illness Narrative 1. Wears contact lenses (Primary) 2. Myopia of both eyes 3. Regular astigmatism of left eye -ocular health unremarkable, no retinal breaks OU -released new CL prescription #1: updated spherical air optix #2: ultra with toric OS #3: air optix with toric OS -released new spec Rx -RTC one year for comprehensive exam + contact lens fitting Latoya Caceres, RUIZ documented in this encounter [facility] 04-26-2024 Telephone encounter Note Pharmacy faxed requesting the following refill Refill(s) Requested: Requested Prescriptions Pending Prescriptions Disp Refills omeprazole (PRILOSEC) 20 mg capsule [Pharmacy Med Name: OMEPRAZOLE DR 20 MG CAPSULE] 90 capsule 1 Sig: TAKE 1 CAPSULE BY MOUTH EVERY DAY ALLERGIES No Known Allergies (home) [phone] (cell) Last Office Visit Date: 08/04/2023 Last Distance Health Visit: 01/31/2024 Future Appointment: Visit date not found The patients preferred pharmacy has been captured for this encounter? yes Request is for script(s) to be escript to pharmacy. Rosmery Gamble MA [facility] 04-26-2024 Miscellaneous Notes Pharmacy faxed requesting the following refill Refill(s) Requested: Requested Prescriptions Pending Prescriptions Disp Refills omeprazole (PRILOSEC) 20 mg capsule [Pharmacy Med Name: OMEPRAZOLE DR 20 MG CAPSULE] 90 capsule 1 Sig: TAKE 1 CAPSULE BY MOUTH EVERY DAY ALLERGIES No Known Allergies (home) [phone] (cell) Last Office Visit Date: 08/04/2023 Last Distance Health Visit: 01/31/2024 Future Appointment: Visit date not found The patients preferred pharmacy has been captured for this encounter? yes Request is for script(s) to be escript to pharmacy. Rosmery Gamble MA documented in this encounter [facility] 04-18-2024 Miscellaneous Notes Patient MyChart message requesting the following refill Refill(s) Requested: Requested Prescriptions Pending Prescriptions Disp Refills escitalopram oxalate (LEXAPRO) 20 mg tablet 90 tablet 1 Sig: Take 1 tablet by mouth once daily. ALLERGIES No Known Allergies (home) [phone] (cell) Last Office Visit Date: 08/04/2023 Last Distance Health Visit: 01/31/2024 Future Appointment: Visit date not found The patients preferred pharmacy has been captured for this encounter? yes Request is for script(s) to be escript to pharmacy. Catarina Hutson MA documented in this encounter [facility] 04-18-2024 Telephone encounter Note Patient MyChart message requesting the following refill Refill(s) Requested: Requested Prescriptions Pending Prescriptions Disp Refills escitalopram oxalate (LEXAPRO) 20 mg tablet 90 tablet 1 Sig: Take 1 tablet by mouth once daily. ALLERGIES No Known Allergies (home) [phone] (cell) Last Office Visit Date: 08/04/2023 Last Distance Health Visit: 01/31/2024 Future Appointment: Visit date not found The patients preferred pharmacy has been captured for this encounter? yes Request is for script(s) to be escript to pharmacy. Catarina Hutson MA [facility] 03-13-2024 Telephone encounter Note Pharmacy faxed requesting the following refill Refill(s) Requested: Requested Prescriptions Pending Prescriptions Disp Refills escitalopram oxalate (LEXAPRO) 20 mg tablet 90 tablet 1 Sig: Take 1 tablet by mouth once daily. ALLERGIES No Known Allergies (home) [phone] (cell) Last Office Visit Date: 08/04/2023 Last Distance Health Visit: 01/31/2024 Future Appointment: Visit date not found The patients preferred pharmacy has been captured for this encounter? yes Request is for script(s) to be escript to pharmacy. Merlene Moss MA [facility] 03-13-2024 Miscellaneous Notes Pharmacy faxed requesting the following refill Refill(s) Requested: Requested Prescriptions Pending Prescriptions Disp Refills escitalopram oxalate (LEXAPRO) 20 mg tablet 90 tablet 1 Sig: Take 1 tablet by mouth once daily. ALLERGIES No Known Allergies (home) [phone] (cell) Last Office Visit Date: 08/04/2023 Last Distance Health Visit: 01/31/2024 Future Appointment: Visit date not found The patients preferred pharmacy has been captured for this encounter? yes Request is for script(s) to be escript to pharmacy. Merlene Moss MA documented in this encounter [facility] 01-31-2024 Note HNO ID: [id number] Author: CHRISTINA RENDON MD Service: ? Author Type: Physician Type: Progress Notes Filed: 01/31/2024 16:57 Note Text: VIRTUAL VISIT PROGRESS NOTE This is a virtual visit using [employer] Zoom Video Visit. It required patient-provider interaction for the medical decision making as documented below. I have communicated my name and active licensure. The patient's identity and physical location were verified at the time of this visit. Either the patient or their legal outside sales representative insurance has been informed of the risks and benefits of -- and alternatives to -- treatment through a remote evaluation and consents to proceed with the evaluation remotely. Jocy Dennis is a 23 year old female seen for anxiety. Patient last saw me in July and trialed off lexapro and was tapered off lexapro following having previously been on the medication for about 2 years. She notes that she has been feeling more anxious and has to cut down on hours at work. She notes that anxiety feels like baseline on day to day. She denies having panic attacks but reports emotional responses to stressful situations. She notes that her and coworker has noticed anxiety. 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 She has noticed lack of motivation. PHQ-9 Score: 7 (01/31/2024 4:49 PM) (0-4) minimal depression, (5-9) mild depression, (10-14) moderate depression, (15-19) moderately severe depression, (20-27) severe depression 01/31/2024 LEENA - 7 SCORES Score 11 (0-4) minimal anxiety, (5-9) mild anxiety, (10-14) moderate anxiety, (15-21) severe anxiety HISTORY REVIEWED (electronic chart updated): PAST MEDICAL HISTORY Diagnosis Date Anxiety and depression Exercise-induced asthma GERD (gastroesophageal reflux disease) PAST SURGICAL HISTORY Procedure Laterality Date COLONOSCOPY SCREENING age 5 for diarrhea, normal findings EXTRACTION ERUPTED TOOTH/EXR FAMILY HISTORY Problem Relation Age of Onset Cataract No Family History Glaucoma No Family History Detached Retina No Family History Blindness No Family History Macular Degen No Family History Social History Tobacco Use Smoking status: Never Smokeless tobacco: Never Substance Use Topics Alcohol use: Yes Comment: occassional Drug use: Never Current Outpatient Medications Medication Sig escitalopram oxalate (LEXAPRO) 20 mg tablet Take 1/2 tablet of lexapro daily for 7 days and then increase to 1 full tablet daily albuterol HFA (PROVENTIL HFA, VENTOLIN HFA) 90 mcg/actuation inhaler Inhale 2 Puffs as instructed every 4 hours as needed for wheezing/shortness of breath. No current facility-administered medications for this visit. ALLERGIES No Known Allergies REVIEW OF SYSTEMS: As noted in HPI PHYSICAL EXAMINATION: VIDEO EXAM: (if completed, performed via video enabled technology) GENERAL: alert and appropriate, in no distress, well-hydrated, well nourished, and happy, smiling, interactive SKIN: no rash noted HEAD: normocephalic, no abnormality or lesion noted ASSESSMENT/PLAN: 1. Anxiety and depression - ICD9: 300.00, 311, ICD10: F41.9, F32.A - restarted lexapro following being off of medication and starting to feel more anxious - patient denies SI/HI - ESCITALOPRAM 20 MG TABLET There are no Patient Instructions on file for this visit. I spent a total of 18 minutes on the date of the service which included [id number] patient care, completing clinical documentation, obtaining and/or reviewing separately obtained history, performing a medically appropriate examination, counseling and educating the patient/family/caregiver, and ordering medications, tests, or procedures Christina Rendon MD [facility] 01-31-2024 History of Presen t illness Narrative VIRTUAL VISIT PROGRESS NOTE This is a virtual visit using [employer] Video Visit. It required patient-provider interaction for the medical decision making as documented below. I have communicated my name and active licensure. The patient's identity and physical location were verified at the time of this visit. Either the patient or their legal outside sales representative insurance has been informed of the risks and benefits of -- and alternatives to -- treatment through a remote evaluation and consents to proceed with the evaluation remotely. Jocy Dennis is a 23 year old female seen for anxiety. Patient last saw me in July and trialed off lexapro and was tapered off lexapro following having previously been on the medication for about 2 years. She notes that she has been feeling more anxious and has to cut down on hours at work. She notes that anxiety feels like baseline on day to day. She denies having panic attacks but reports emotional responses to stressful situations. She notes that her and coworker has noticed anxiety. 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 She has noticed lack of motivation. PHQ-9 Score: 7 (01/31/2024 4:49 PM) (0-4) minimal depression, (5-9) mild depression, (10-14) moderate depression, (15-19) moderately severe depression, (20-27) severe depression 01/31/2024 LEENA - 7 SCORES Score 11 (0-4) minimal anxiety, (5-9) mild anxiety, (10-14) moderate anxiety, (15-21) severe anxiety HISTORY REVIEWED (electronic chart updated): PAST MEDICAL HISTORY Diagnosis Date Anxiety and depression Exercise-induced asthma GERD (gastroesophageal reflux disease) PAST SURGICAL HISTORY Procedure Laterality Date COLONOSCOPY SCREENING age 5 for diarrhea, normal findings EXTRACTION ERUPTED TOOTH/EXR FAMILY HISTORY Problem Relation Age of Onset Cataract No Family History Glaucoma No Family History Detached Retina No Family History Blindness No Family History Macular Degen No Family History Social History Tobacco Use Smoking status: Never Smokeless tobacco: Never Substance Use Topics Alcohol use: Yes Comment: occassional Drug use: Never Current Outpatient Medications Medication Sig escitalopram oxalate (LEXAPRO) 20 mg tablet Take 1/2 tablet of lexapro daily for 7 days and then increase to 1 full tablet daily albuterol HFA (PROVENTIL HFA, VENTOLIN HFA) 90 mcg/actuation inhaler Inhale 2 Puffs as instructed every 4 hours as needed for wheezing/shortness of breath. No current facility-administered medications for this visit. ALLERGIES No Known Allergies REVIEW OF SYSTEMS: As noted in HPI PHYSICAL EXAMINATION: VIDEO EXAM: (if completed, performed via video enabled technology) GENERAL: alert and appropriate, in no distress, well-hydrated, well nourished, and happy, smiling, interactive SKIN: no rash noted HEAD: normocephalic, no abnormality or lesion noted ASSESSMENT/PLAN: 1. Anxiety and depression - ICD9: 300.00, 311, ICD10: F41.9, F32.A - restarted lexapro following being off of medication and starting to feel more anxious - patient denies SI/HI - ESCITALOPRAM 20 MG TABLET There are no Patient Instructions on file for this visit. I spent a total of 18 minutes on the date of the service which included [id number] patient care, completing clinical documentation, obtaining and/or reviewing separately obtained history, performing a medically appropriate examination, counseling and educating the patient/family/caregiver, and ordering medications, tests, or procedures Christina Rendon MD documented in this encounter [facility] 08-18-2023 Instructions Latoya Caceres, OD - 08/18/2023 3:39 PM EDT CONTACT LENS EDUCATION: Follow-Up Evaluation: If a follow-up evaluation is required, please wear your lenses for a minimum of 4 hours prior to the scheduled follow up examination. If mild to moderate problems occur with lens wear, it is helpful to see you with lenses on after several hours of wear in order to assist in the diagnosis of the problem. Handling your Soft Contact Lens: Your first step is to wash your hands, then rinse lenses, start with your right lens first to avoid mixing up the lenses. Rinse with rinsing solution before putting on the lens. Inspect Lenses: Place the lens on your forefinger and inspect it for foreign particles, tears, or other damage before placing the lens on your eye. Inverted Lenses: While inspecting the lens, check to make sure the lens is not inside out. Method 1 If the lens is in the correct position, the edges will appear almost straight up or turn in. When inverted, the edges will flare out. Method 2 Pinch the lens together and if it folds together with the edges curled in, then it is not inverted. If the lens flips out and stick to your fingers when pinched, it is inside out. If Lens Sticks Together: Place the lens in the palm of your hand and soak it thoroughly with the solution. Gently roll the lens with your index finger in the palm of your hand in a back and forth motion. If gently rubbing does not separate the lens edges, soak it in solution until it resumes normal shape. Re-wetting drops can be used as desired while you are wearing the lenses to hydrate the lenses and reduce dryness and foggy vision. I recommend the Blink contacts brand. It is important to take proper care of your lenses and to avoid infection that could lead to permanent damage to your eye and/or permanent vision loss. DO NOT sleep in lenses overnight DO NOT use lenses for longer than recommended by your doctor DO NOT use tap water or saliva to clean your lenses. DO NOT use a dirty or old case. Contact lens cases should be replaced every 3 months DO NOT swim or shower while wearing contact lenses ALWAYS use a multipurpose or peroxide based disinfecting systems to clean lenses ALWAYS wash your hands before inserting and removing your contact lenses ALWAYS have a pair of back-up glasses or extra set of contact lenses available in case you lose or need to remove your contacts Please call your provider if you have any complications or signs of infection, and stop wearing your contact immediately Non-compliance with these recommendations may result in serious eye infections, corneal scarring, loss of vision, or even blindness. We recommend not sleeping in contact lenses and replacing the storage case every three months. If pain, redness, light sensitivity, discharge, or intolerance occur, discontinue contact lens wear and call the office as soon as possible. documented in this encounter [facility] 08-18-2023 History of Presen t illness Narrative 1. Wears contact lenses 2. Myopia of both eyes 3. Regular astigmatism of left eye - Educated patient on exam findings - good comfort, fit, and vision in lenses - new CL prescription released to patient. Okay to order - interested in refractive surgery, provided waitlist number. - Monitor complete exam. Final Contact Lens Rx Brand Base Curve Diameter Sphere Cylinder Right Air Optix HydraGlyde;Matthew 8.6 14.2 -5.25 Sphere Left Air Optix HydraGlyde;Matthew 8.6 14.2 -5.50 Sphere Expiration Date: 08/17/2024 RTC one year for CEE + CL fitting Latoya Caceres, RUIZ documented in this encounter [facility] 08-04-2023 Instructions Christina Rendon MD - 08/04/2023 3:04 PM EDT - take lexapro at 10 mg (cut 20 mg tablets in half) x 14 days, then take 5 mg of lexapro for 14 days, then cut 5 mg tablets in half (2.5 mg) and take for 7 days then take the 2.5 mg tablets every other day for 7 days then stop documented in this encounter [facility] 08-04-2023 Note HNO ID: [id number] Author: CHRISTINA RENDON MD Service: ? Author Type: Physician Type: Progress Notes Filed: 08/04/2023 15:29 Note Text: [facility] [address] [place] [address] Date of Evaluation: 08/04/2023 Patient Name: Jocy Dennis : 2000 Chief Complaint: Patient presents with: New Patient Nursing Intake: There are no exam notes on file for this visit. Subjective HPI Ms. Dennis is a 23 year old female with PMH significant for exercise- induced asthma, depression and anxiety, GERD who presents for establishing care with me. She recently moved to [place] from [place] after getting in January of 2023. She notes that this past 4 months, she would have bad acid reflux, especially with wine, alcohol, greasy foods and acidic foods. She has been taking pepcid 20 mg BID on a regular basis. She started lexapro in 2019 for depression and anxiety due to school. She notes that she started trying to wean off her lexapro but ended up getting brain zaps. She notes that she started taking the 20 mg of lexapro every other day and then spacing it out more. The brain zaps came when spacing out the medication even more than just every other day. She denies prior history of hospitalizations or SI/HI/AVH related to anxiety and depression. She recently got her pap smear done about [address] Edgar Bailey in [facility]. She had gotten her copper IUD removed that day. She notes that pap smear was negative. 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 She started her job at [employer] in March and likes her job a lot. She works nights currently. She is currently using condoms for control. She notes that she has regular periods and about 6-7 days and light to medium. Review of Systems Constitutional: Negative for appetite change and unexpected weight change. Eyes: Negative for visual disturbance. Respiratory: Negative for shortness of breath. Cardiovascular: Negative for chest pain and leg swelling. Gastrointestinal: Negative for abdominal pain, constipation and diarrhea. Genitourinary: Negative for difficulty urinating and menstrual problem. Musculoskeletal: Negative for gait problem and joint swelling. Skin: Negative for rash. Neurological: Negative for weakness. Hematological: Does not bruise/bleed easily. Psychiatric/Behavioral: Negative for dysphoric mood, sleep disturbance and suicidal ideas. The patient is not nervous/anxious and is not hyperactive. PAST MEDICAL HISTORY Diagnosis Date Anxiety and depression Exercise-induced asthma GERD (gastroesophageal reflux disease) PAST SURGICAL HISTORY Procedure Laterality Date COLONOSCOPY SCREENING age 5 for diarrhea, normal findings EXTRACTION ERUPTED TOOTH/EXR History reviewed. No pertinent family history. Social History Tobacco Use Smoking status: Never Smokeless tobacco: Never Substance Use Topics Alcohol use: Yes Comment: occassional Drug use: Never Current Outpatient Medications Medication Sig escitalopram oxalate (LEXAPRO) 20 mg tablet escitalopram oxalate (LEXAPRO) 5 mg tablet take 5 mg daily of lexapro for 14 days, then cut 5 mg tablets in half (2.5 mg) daily and take for 7 days then take the 2.5 mg tablets every other day for 7 days then stop omeprazole (PRILOSEC) 20 mg capsule Take 1 capsule by mouth once daily. albuterol HFA (PROVENTIL HFA, VENTOLIN HFA) 90 mcg/actuation inhaler Inhale 2 Puffs as instructed every 4 hours as needed for wheezing/shortness of breath. No current facility-administered medications for this visit. I have confirmed and edited as necessary the chief complaint, medications, past medical, family and social histories obtained by others. Objective BP 114/73 Pulse 63 Resp 16 Ht 5' 5 (1.65m) Wt 189 lb (85.7kg) SpO2 97% LMP 07/26/2023 BMI 31.45 kg/(m2). Physical Exam Vitals reviewed. Constitutional: General: She is not in acute distress. Appearance: Normal appearance. She is not ill-appearing, toxic-appearing or diaphoretic. HENT: Head: Normocephalic and atraumatic. Right Ear: Tympanic membrane, ear canal and external ear normal. Left Ear: Tympanic membrane, ear canal and external ear normal. Nose: Nose normal. Mouth/Throat: Mouth: Mucous membranes are moist. Pharynx: Oropharynx is clear. No oropharyngeal exudate or posterior oropharyngeal erythema. Eyes: General: No scleral icterus. Extraocular Movements: Extraocular movements intact. Conjunctiva/sclera: Conjunctivae normal. Pupils: Pupils are equal, round, and reactive to light. Cardiovascular: Rate and Rhythm: Normal rate and regular rhythm. Heart sounds: No murmur heard. No friction rub. No gallop. Pulmonary: Effort: Pulmonary effort is normal. No respiratory distress. Breath sounds: Normal breath sounds. No wheezing, rhonchi or ra (more content not included)... [facility] 08-04-2023 History of Presen t illness Narrative Images from the original note were not included. [facility] [address] [place] [address] Date of Evaluation: 08/04/2023 Patient Name: Jocy Dennis : 2000 Chief Complaint: Patient presents with: New Patient Nursing Intake: There are no exam notes on file for this visit. Subjective HPI Ms. Dennis is a 23 year old female with PMH significant for exercise- induced asthma, depression and anxiety, GERD who presents for establishing care with me. She recently moved to [place] from [place] after getting in January of 2023. She notes that this past 4 months, she would have bad acid reflux, especially with wine, alcohol, greasy foods and acidic foods. She has been taking pepcid 20 mg BID on a regular basis. She started lexapro in 2019 for depression and anxiety due to school. She notes that she started trying to wean off her lexapro but ended up getting brain zaps. She notes that she started taking the 20 mg of lexapro every other day and then spacing it out more. The brain zaps came when spacing out the medication even more than just every other day. She denies prior history of hospitalizations or SI/HI/AVH related to anxiety and depression. She recently got her pap smear done about [address] Edgar Bailey in [facility]. She had gotten her copper IUD removed that day. She notes that pap smear was negative. 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 She started her job at [employer] in March and likes her job a lot. She works nights currently. She is currently using condoms for control. She notes that she has regular periods and about 6-7 days and light to medium. Review of Systems Constitutional: Negative for appetite change and unexpected weight change. Eyes: Negative for visual disturbance. Respiratory: Negative for shortness of breath. Cardiovascular: Negative for chest pain and leg swelling. Gastrointestinal: Negative for abdominal pain, constipation and diarrhea. Genitourinary: Negative for difficulty urinating and menstrual problem. Musculoskeletal: Negative for gait problem and joint swelling. Skin: Negative for rash. Neurological: Negative for weakness. Hematological: Does not bruise/bleed easily. Psychiatric/Behavioral: Negative for dysphoric mood, sleep disturbance and suicidal ideas. The patient is not nervous/anxious and is not hyperactive. PAST MEDICAL HISTORY Diagnosis Date Anxiety and depression Exercise-induced asthma GERD (gastroesophageal reflux disease) PAST SURGICAL HISTORY Procedure Laterality Date COLONOSCOPY SCREENING age 5 for diarrhea, normal findings EXTRACTION ERUPTED TOOTH/EXR History reviewed. No pertinent family history. Social History Tobacco Use Smoking status: Never Smokeless tobacco: Never Substance Use Topics Alcohol use: Yes Comment: occassional Drug use: Never Current Outpatient Medications Medication Sig escitalopram oxalate (LEXAPRO) 20 mg tablet escitalopram oxalate (LEXAPRO) 5 mg tablet take 5 mg daily of lexapro for 14 days, then cut 5 mg tablets in half (2.5 mg) daily and take for 7 days then take the 2.5 mg tablets every other day for 7 days then stop omeprazole (PRILOSEC) 20 mg capsule Take 1 capsule by mouth once daily. albuterol HFA (PROVENTIL HFA, VENTOLIN HFA) 90 mcg/actuation inhaler Inhale 2 Puffs as instructed every 4 hours as needed for wheezing/shortness of breath. No current facility-administered medications for this visit. I have confirmed and edited as necessary the chief complaint, medications, past medical, family and social histories obtained by others. Objective BP 114/73 Pulse 63 Resp 16 Ht 5' 5 (1.65m) Wt 189 lb (85.7kg) SpO2 97% LMP 07/26/2023 BMI 31.45 kg/(m^2). Physical Exam Vitals reviewed. Constitutional: General: She is not in acute distress. Appearance: Normal appearance. She is not ill-appearing, toxic-appearing or diaphoretic. HENT: Head: Normocephalic and atraumatic. Right Ear: Tympanic membrane, ear canal and external ear normal. Left Ear: Tympanic membrane, ear canal and external ear normal. Nose: Nose normal. Mouth/Throat: Mouth: Mucous membranes are moist. Pharynx: Oropharynx is clear. No oropharyngeal exudate or posterior oropharyngeal erythema. Eyes: General: No scleral icterus. Extraocular Movements: Extraocular movements intact. Conjunctiva/sclera: Conjunctivae normal. Pupils: Pupils are equal, round, and reactive to light. Cardiovascular: Rate and Rhythm: Normal rate and regular rhythm. Heart sounds: No murmur heard. No friction rub. No gallop. Pulmonary: Effort: Pulmonary effort is normal. No respiratory distress. Breath sounds: Normal breath sounds. No wheezing, rhonchi or rales. Abdominal: General: Abdomen is flat. Bowel sounds are normal. There is no distension. Palpations: Abdomen is soft. Tenderness: There is no abdominal tenderness. Musculoskeletal: General: Normal range of motion. Cervical back: Normal range of motion and neck supple. No tenderness. Right lower leg: No edema. Left lower leg: No edema. Lymphadenopathy: Cervical: No cervical adenopathy. Skin: General: Skin is warm and dry. Coloration: Skin is not jaundiced. Neurological: Mental Status: She is alert and oriented to person, place, and time. Gait: Gait normal. Psychiatric: Mood and Affect: Mood normal. Behavior: Behavior normal. Thought Content: Thought content normal. Judgment: Judgment normal. Data Reviewed: No new labs ASSESSMENT/PLAN: 1. Encounter for medical examination to establish care - ICD9: V70.9, ICD10: Z00.00 (primary diagnosis) - Counseled on healthy diet and regular exercise - COMPLETE BLOOD COUNT AND DIFFERENTIAL - COMPREHENSIVE METABOLIC PANEL - patient up to date on vaccines and pap smear 2. Anxiety and depression - ICD9: 300.00, 311, ICD10: F41.9, F32.A - patient trying to wean off lexapro - will complete slow wean as patient has been on this medication since 2019 - ESCITALOPRAM 5 MG TABLET 3. Gastroesophageal reflux disease, unspecified whether esophagitis present - ICD9: 530.81, ICD10: K21.9 - OMEPRAZOLE 20 MG CAPSULE,DELAYED RELEASE - COMPLETE BLOOD COUNT AND DIFFERENTIAL 4. Screening, lipid - ICD9: V77.91, ICD10: Z13.220 - LIPID PANEL BASIC 5. Vitamin D deficiency - ICD9: 268.9, ICD10: E55.9 - VITAMIN D 25 HYDROXY 6. Exercise-induced asthma - ICD9: 493.81, ICD10: J45.990 - Mild intermittent asthma stable - Continue current medications - Avoidance of triggers recommended - Asthma Action Plan reviewed - ALBUTEROL SULFATE HFA 90 MCG/ACTUATION AEROSOL INHALER 7. Routine eye exam - ICD9: V72.0, ICD10: Z01.00 - CONSULT TO OPTOMETRY Christina Rendon MD Return in about 4 months (around 12/04/2023) for follow up depression/ anxiety. Discussed the above with the patient using shared decision making. The patient is in agreement with the diagnostic and treatment plans. documented in this encounter [facility] Evaluation note Diagnosis Onset Date Counseling for control regarding intrauterine device (IUD) acute Encounter for IUD insertion noneactive [facility] Work Phone: Evaluation note* Diagnosis Onset Date Resolution Status Vaginal discharge noneactive Dysmenorrhea noneactive [facility] Work Phone: Evaluation note* Diagnosis Onset Date Resolution Status Pap smear for cervical cancer screening noneactive Encounter for IUD removal no neactive [facility] Work Phone: Evaluation note* Diagnosis Encounter for medical examination to establish care- Primary Anxiety and depression Dysthymic disorder Gastroesophageal reflux disease, unspecified whether esophagitis present Screening, lipid Screening for lipoid disorders Vitamin D deficiency Unspecified vitamin D deficiency Exercise-induced asthma Exercise induced bronchospasm Routine eye exam [facility] Diagnosis Wears contact lenses- Primary Problems with sight Myopia of both eyes Myopia Regular astigmatism of left eye Regular astigmatism [facility] Diagnosis Anxiety and depression- Primary Dysthymic disorder [facility] Diagnosis Anxiety and depression Dysthymic disorder [facility] Diagnosis Gastroesophageal reflux disease, unspecified whether esophagitis present- Primary [facility] Diagnosis Anxiety and depression Dysthymic disorder [facility] Diagnosis Gastroesophageal reflux disease, unspecified whether esophagitis present [facility] Diagnosis Wears contact lenses- Primary Problems with sight Myopia of both eyes Myopia Regular astigmatism of left eye Regular astigmatism documented [facility] this [facility] noteNo assessment information availableSt. [facility] Work Phone: Reason for referral (narrative)No reason for referral information availableD[facility] Work Phone: Chief Complaint and Reason for Visit Chief Complaint IUD consult/Paragard insertion *self pay CONTACT WITH AND (SUSPECTED) EXPOSURE TO INFECTION Reason for Visit Counseling for control regarding intrauterine device (IUD) Encounter for IUD insertion Chief Complaint BV? Reason for Visit Vaginal discharge Dysmenorrhea Chief Complaint IUD REMOVAL ([address] RD) Reason for Visit Pap smear for cervic al cancer screening Encounter for IUD removal Chief Complaint Admit Date Vaginal irritation and itching November 06, 2024 1:58pm Summary Purpose Family History No Family History Records FoundNo Family History Records FoundNo Family History Records Found Advance Directives No Advanced Directives Records FoundNo Advanced Directives Records FoundNo Advanced Directives Records Found Reason for Referral Specialty Diagnoses / Procedures Referred By Светлана t Referred To Contact Optometry Diagnoses Routine eye exam Procedures CONSULT TO OPTOMETRY OFFICE/OUTPATIENT [facility] 60 MINUTES Christina Rendon MD [address] [place] [address] Referral ID Status Reason Start Date Expiration Date Visits Requested Visits Authorized [id number] Authorized PCP Requested Referral 08/04/2023 08/03/2024 1 1 Additional Source Comments Care Teams (unrecognized sec tion and content) Team Status: Inactive Member Role Status Dates Dr. Sigrid Castillo MD Attending Provider Active Team Status: Inactive Member Role Status Dates Dr. 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 Start [place] [address] [place], [place] [id number] PCP - General Internal Medicine 01/31/24 Truck Dispatcher Relationship Specialty Start Date End Date Christina Rendon MD [address] [place] [id number] PCP - General Internal Medicine 01/31/24 Truck Dispatcher Relationship Specialty Start Date End Date Christina Rendon MD [address] [place] [address] PCP - General Internal Medicine 01/31/24 Truck 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 Relationship Specialty Start Date End Date Christina Rendon MD [address] [place] [address] PCP - General Internal Medicine 01/31/24 Team Status: Inactive Member Role/Relationship Status Dates Rhoda Nunn NP, PROGRAM DIRECTOR/AIR PERSONALITY-C Attending Provider Active Start: November 06, 2024 End: November 06, 2024 Goals (unrecognized section and content) Goals may be documented in a n alternate sectionGoals may be documented in an alternate sectionGoals may be documented in an alternate sectionGoals may be documented in an alternate section INFORMATION SOURCE (unrecogn ized section and content) DATE CREATED AUTHOR 07/13/2023 [facility] DATE CREATED AUTHOR AUTHOR'S ORGANIZ ATION 02/02/2024 [facility] DATE CREATED AUTHOR AUTHOR'S ORGANIZ ATION 10/19/2024 [facility] Source Comments (unrecognize d section and content) In the event this informatio n is protected by the Federal Confidentiality of Alcohol and Drug Abuse Patient Records regulations: The Federal rules restrict any use of the information to criminally investigate or prosecute any alcohol or drug abuse patient.[facility] the event this information is protected by the Federal Confidentiality of Alcohol and Drug Abuse Patient Records regulations: The Federal rules restrict any use of the information to criminally investigate or prosecute any alcohol or drug abuse patient.[facility] the event this information is protected by the Federal Confidentiality of Alcohol and Drug Abuse Patient Records regulations: The Federal rules restrict any use of the information to criminally investigate or prosecute any alcohol or drug abuse patient.[facility] the event this information is protected by the Federal Confidentiality of Alcohol and Drug Abuse Patient Records regulations: The Federal rules restrict any use of the information to criminally investigate or prosecute any alcohol or drug abuse patient.[facility] the event this information is protected by the Federal Confidentiality of Alcohol and Drug Abuse Patient Records regulations: The Federal rules restrict any use of the information to criminally investigate or prosecute any alcohol or drug abuse patient.[facility] Hospital[facility] the event this information is protected by the Federal Confidentiality of Alcohol and Drug Abuse Patient Records regulations: The Federal rules restrict any use of the information to criminally investigate or prosecute any alcohol or drug abuse patient.[facility] the event this information is protected by the Federal Confidentiality of Alcohol and Drug Abuse Patient Records regulations: The Federal rules restrict any use of the information to criminally investigate or prosecute any alcohol or drug abuse patient.[facility] Hospital[facility] the event this information is protected by the Federal Confidentiality of Alcohol and Drug Abuse Patient Records regulations: The Federal rules restrict any use of the information to criminally investigate or prosecute any alcohol or drug abuse patient.[facility] Reason for Visit (unrecogniz ed section and content) Reason Comments New Patient Reason Comments Diabetes Reason Comments Anxiety Reason Onset Date Comments Refill Request 03/12/2024 Reason Onset Date Comments Refill Request 04/17/2024 Reason Comments Med Change Request Reason Comments Contact lens evaluation Specialty Diagnoses / Procedures Referred By Светлана morocho Referred To Contact OPHTHALMOLOGY Diagnoses EYE EXAM/ CONTACTS Procedures EYE EXAM/CONTACTS Latoya Caceres, OD [address] [facility] [address] [place] [address] Phone: tel: fax: Ophthalmology [address] [facility] [address] [place] [address] Phone: tel: fax: Referral ID Status Reason Start Date Expiration Date V isits Requested Visits Authorized [id number] Closed Patient Cleared - True Self-Pay required payment collected 08/21/2024 11/19/2024 1 1 FOR RECORDS PERTAINING TO PATIENTS WHO ARE OR HAVE BEEN ENROLLED IN A CHEMICAL DEPENDENCY/SUBSTANCEABUSE PROGRAM, SOME INFORMATION MAY BE OMITTED. This clinical summary was aggregated from multiple sources. Caution should be exercised in using it in the provision of clinical care. This summary normalizes information from multiple sources, and as a consequence, information in this document may materially change the coding, format and clinical context of patient data. In addition, data may be omitted in some cases. CLINICAL DECISIONS SHOULD BE BASED ON THE PRIMARY CLINICAL RECORDS. [facility] [employer] [facility]. provides no warranty or guarantee of the accuracy or completeness of information in this document.
== END | disposition home or self-care (01) ==
PROVIDERS: Visit Provider Nurse Practitioner Women's Health
DX: N89.8 Other specified noninflammatory disorders of vagina (principal)
CPT/HCPCS: 87070; 87205

== ENCOUNTER → 2024-12-20 | Outpatient (CLI) | payer OTHER, SELFPAY ==
--- NOTE | 2024-12-20 08:20 | VUL_PTH ---
PATIENT: HOANG RAHMAN LOC: [facility] U#:[id number] AGE/SX: 24/F ROOM: RE12/20/[address]: Dr. Sigrid Castillo MD : 2000 BED: DIS: 12/20/2024 SPEC #: [id number] RECD: 12/20/24 12:13 STATUS: TALI REILLY #: [id number] GIANCARLO: 12/20/24 08:[address]: Sigrid Castillo DEPT: SURGICAL PATHOLOGY RECD BY: Milton Silva Tissues: A - Vulva, NOS Procedures: Surgery Specimen Level IV HEADER OPERATION: Vulvar biopsy PRE-OP DIAGNOSIS: Vulvar lesion TISSUE SUBMITTED: A- Vulvar lesion MICROSCOPIC DIAGNOSIS A. Vulva, biopsy: * Low grade squamous intraepithelial lesion (condyloma, HPV cytopathic effect) - see Comment. * RAYA is positive for low risk HPV. * RAYA is negative for high risk HPV. COMMENT Selected slides/images were reviewed in intradepartmental consultation by Dr Geovanny Garcia (dermatopathology division, [facility]). MICROSCOPIC DESCRIPTION Slides are reviewed. All matched controls reacted appropriately. These tests were developed and their performance characteristics determined by [facility]. They may not have been cleared or approved by the U.S. Food and Drug Administration. The FDA has determined that such clearance or approval is not necessary. The above immunohistochemical markers and/or special?stains have been reviewed by the Pathologist.. GROSS DESCRIPTION A. Received in formalin labeled the patient's name and date of is a 0.5 x 0.3 x <0.1 cm jennings skin ellipse devoid of orientation. The resection margin is inked black. There is a 0.3 x 0.2 x 0.1 cm jennings-white, raised and firm lesion comprising approximately 80% of the epidermal surface and abutting the peripheral edge. The specimen is bisected and entirely submitted in 1 cassette. [place] 12/20/2024 CPT:[id number]
--- NOTE | 2024-12-20 08:20 | VUL_PTH ---
PATIENT: HOANG RAHMAN LOC: [facility] U#:[id number] AGE/SX: 24/F ROOM: RE12/20/[address]: Dr. Sigrid Castillo MD : 2000 BED: DIS: 12/20/2024 SPEC #: [id number] RECD: 12/20/24 12:13 STATUS: TALI REILLY #: [id number] GIANCARLO: 12/20/24 08:[address]: Sigrid Castillo DEPT: SURGICAL PATHOLOGY RECD BY: Milton Silva Tissues: A - Vulva, NOS Procedures: Surgery Specimen Level IV HEADER OPERATION: Vulvar biopsy PRE-OP DIAGNOSIS: Vulvar lesion TISSUE SUBMITTED: A- Vulvar lesion MICROSCOPIC DIAGNOSIS A. Vulva, biopsy: * Low grade squamous intraepithelial lesion (condyloma, HPV cytopathic effect) - see Comment. * RAYA is positive for low risk HPV. * RAYA is negative for high risk HPV. COMMENT Selected slides/images were reviewed in intradepartmental consultation by Dr Geovanny Garcia (dermatopathology division, [facility]). MICROSCOPIC DESCRIPTION Slides are reviewed. All matched controls reacted appropriately. These tests were developed and their performance characteristics determined by [facility]. They may not have been cleared or approved by the U.S. Food and Drug Administration. The FDA has determined that such clearance or approval is not necessary. The above immunohistochemical markers and/or special?stains have been reviewed by the Pathologist.. GROSS DESCRIPTION A. Received in formalin labeled the patient's name and date of is a 0.5 x 0.3 x <0.1 cm jennings skin ellipse devoid of orientation. The resection margin is inked black. There is a 0.3 x 0.2 x 0.1 cm jennings-white, raised and firm lesion comprising approximately 80% of the epidermal surface and abutting the peripheral edge. The specimen is bisected and entirely submitted in 1 cassette. [place] 12/20/2024 CPT:[id number]
== END | disposition home or self-care (01) ==
LOC: LABSPEC 10:47
PROVIDERS: Referring Provider Obstetrics & Gynecology; Visit Provider Obstetrics & Gynecology
DX: N90.89 Other specified noninflammatory disorders of vulva and perineum (principal)
CPT/HCPCS: 88305